=== PATIENT | female | born 1950 | race Caucasian/White ===

== ENCOUNTER 2019-08-07 19:43 | Inpatient (IN) | payer MEDICAID ==
[~2019-08-07] VITALS: Ht 162.6 cm; Wt 82.4 kg
[2019-08-07] MEDS ORDERED: IPRATROPIUM BROMIDE (0.02%) 0.5MG/2.5ML NEB HHN STA (20:15)
[2019-08-07] MEDS: ALBUTEROL (0.083%) 2.5MG/3ML NEB HHN SCH ×3 (20:34→21:47)
[2019-08-07 20:43] LABS: BASOPHILS % 0.5 % (0.0-2.0); HEMATOCRIT. 34.9 % (36.0-48.0); HEMOGLOBIN. 11.1 g/dL (12.0-16.0); LYMPHOCYTES % 29.5 % (20.0-50.0); MEAN CORPUSCULAR VOLUME 81.5 fL (81.0-99.0); MEAN PLATELET VOLUME 6.8 fl (7.4-10.4); MONOCYTES % 9.6 % (2.0-8.0); NEUTROPHILS % 59.4 % (40.0-76.0); PLATELET 315 x1000/uL (130-400); RED BLOOD CELL COUNT 4.28 mill/uL (4.2-5.4); RED CELL DISTRIBUTION WIDTH 17.9 % (11.6-14.6)
[2019-08-07 20:45] LABS: CHLORIDE 105 mEq/L (98-107)
[2019-08-07] MEDS ORDERED: LEVOFLOXACIN 750MG PREMIX 150 ML IV ONE (22:15)
[2019-08-07] MEDS ORDERED: VANCOMYCIN 2,000 MG in DEXT 5% WATER 500 ML IV SCH (23:45)
[2019-08-08] VITALS (8 sets, daily range): BP systolic 118–200; BP diastolic 44–186
[2019-08-08] MEDS ORDERED: NITROGLYCERIN 0.4MG TABLET SL SL PRN (02:00)
[2019-08-08] MEDS ORDERED: ACETAMINOPHEN 325MG TABLET PO PRN (02:00)
[2019-08-08] MEDS ORDERED: VANCOMYCIN 1 G PREMIX 200 ML IV SCH (02:00)
[2019-08-08] MEDS ORDERED: CEFEPIME 1,000 MG in DEXTROSE 5% WATER 50 ML IV SCH (02:00)
[2019-08-08] MEDS ORDERED: IPRATROPIUM/ALBUTEROL 0.5-3(2.5)MG/3ML NEB NEB PRN (02:00)
[2019-08-08] MEDS ORDERED: FUROSEMIDE 40MG/4ML VIAL IVP SCH (02:00)
[2019-08-08] MEDS ORDERED: ZOLPIDEM TARTRATE 5MG TABLET PO PRN (02:00)
[2019-08-08] MEDS ORDERED: ONDANSETRON HCL 4MG/2ML INJ IV PRN (02:00)
[2019-08-08] MEDS ORDERED: MAGNESIUM/ALUMINUM HYDROXIDE/SIMETHICONE 30ML UDC PO PRN (02:00)
[2019-08-08] MEDS ORDERED: GUAIFENESIN/DM 600MG/30MG ER TAB 12HR PO SCH (02:00)
[2019-08-08] MEDS ORDERED: DOCUSATE SODIUM 100MG CAPSULE PO PRN (02:00)
[2019-08-08] MEDS ORDERED: HALOPERIDOL LACTATE 5MG/ML VIAL IM PRN (02:00)
[2019-08-08] MEDS ORDERED: CLONIDINE 0.1MG TABLET PO PRN ×2 (02:00→04:24)
[2019-08-08 03:05] LABS: T4 FREE 0.96 ng/dL (0.76-1.46)
[2019-08-08] MEDS ORDERED: FUROSEMIDE 40MG/4ML VIAL IVP NR (04:25)
[2019-08-08] MEDS ORDERED: CEFEPIME 1,000 MG in DEXTROSE 5% WATER 50 ML IV NR (04:29)
[2019-08-08] MEDS ORDERED: GUAIFENESIN/DM 600MG/30MG ER TAB 12HR PO NR (05:41)
[2019-08-08 08:00] LABS: CREATINE KINASE 74 IU/L (26-192)
[2019-08-08 08:01] LABS: CREATINE KINASE MB FRACTION 1.5 ng/mL (0.5-3.6)
[2019-08-08] MEDS: ASPIRIN 325MG EC TABLET PO SCH (09:00)
[2019-08-08] MEDS: SPIRONOLACTONE 25MG TABLET PO SCH ×2 (09:00→21:47)
[2019-08-08] MEDS: FAMOTIDINE 20MG TABLET PO SCH ×2 (09:00→21:47)
[2019-08-08] MEDS: ENOXAPARIN 30MG/0.3ML SYR SUBCUT SCH ×2 (10:04→21:48)
[2019-08-08] MEDS ORDERED: IPRATROPIUM/ALBUTEROL 0.5-3(2.5)MG/3ML NEB HHN PRN (13:30)
[2019-08-08] MEDS ORDERED: BENZONATATE 100MG CAPSULE PO PRN (13:30)
[2019-08-08] MEDS ORDERED: LORAZEPAM 2MG/ML CPJ IV PRN (13:30)
[2019-08-08] MEDS: ACETYLCYSTEINE 100MG/ML 10% VIAL 4ML INH SCH ×2 (16:07→20:07)
[2019-08-08] MEDS: BUDESONIDE 0.5MG/2ML NEB HHN SCH (16:07)
[2019-08-08] MEDS: IPRATROPIUM/ALBUTEROL 0.5-3(2.5)MG/3ML NEB NEB SCH ×2 (16:07→20:07)
[2019-08-08] MEDS: VANCOMYCIN 1 G PREMIX 200 ML IV SCH (17:16)
[2019-08-08] MEDS: FUROSEMIDE 40MG/4ML VIAL IVP SCH (17:17)
[2019-08-08] MEDS: CEFEPIME 1,000 MG in DEXTROSE 5% WATER 50 ML IV SCH (17:19)
[2019-08-08] MEDS: GUAIFENESIN/DM 600MG/30MG ER TAB 12HR PO SCH (17:20)
[2019-08-08 18:12] LABS: CREATINE KINASE 83 IU/L (26-192)
[2019-08-08 18:13] LABS: CREATINE KINASE MB FRACTION 1.6 ng/mL (0.5-3.6)
[2019-08-09] VITALS (12 sets, daily range): BP systolic 112–181; BP diastolic 52–88
[2019-08-09] MEDS: IPRATROPIUM/ALBUTEROL 0.5-3(2.5)MG/3ML NEB NEB SCH ×6 (00:33→19:59)
[2019-08-09] MEDS: ACETYLCYSTEINE 100MG/ML 10% VIAL 4ML INH SCH ×6 (00:33→19:58)
[2019-08-09] MEDS: BUDESONIDE 0.5MG/2ML NEB HHN SCH ×3 (04:26→19:58)
[2019-08-09] MEDS: GUAIFENESIN/DM 600MG/30MG ER TAB 12HR PO SCH ×2 (05:24→17:23)
[2019-08-09] MEDS: FUROSEMIDE 40MG/4ML VIAL IVP SCH ×2 (05:25→17:23)
[2019-08-09] MEDS: CEFEPIME 1,000 MG in DEXTROSE 5% WATER 50 ML IV SCH ×2 (05:26→17:22)
[2019-08-09] MEDS: GUAIFENESIN 200MG/10ML SUGAR FREE UDC PO PRN ×2 (09:02→13:33)
[2019-08-09] MEDS: FAMOTIDINE 20MG TABLET PO SCH ×2 (09:03→20:37)
[2019-08-09] MEDS: ASPIRIN 325MG EC TABLET PO SCH (09:03)
[2019-08-09] MEDS: SPIRONOLACTONE 25MG TABLET PO SCH ×2 (09:04→20:38)
[2019-08-09] MEDS: ENOXAPARIN 30MG/0.3ML SYR SUBCUT SCH ×2 (09:05→20:38)
[2019-08-09] MEDS: VANCOMYCIN 1 G PREMIX 200 ML IV SCH (13:33)
[2019-08-10] VITALS: BP 160/90
[2019-08-10] MEDS: IPRATROPIUM/ALBUTEROL 0.5-3(2.5)MG/3ML NEB NEB SCH ×4 (00:01→12:51)
[2019-08-10 02:00] VITALS: BP 161/86
[2019-08-10] MEDS: ACETYLCYSTEINE 100MG/ML 10% VIAL 4ML INH SCH ×4 (04:17→12:00)
[2019-08-10] MEDS: GUAIFENESIN/DM 600MG/30MG ER TAB 12HR PO SCH (05:14)
[2019-08-10] MEDS: CEFEPIME 1,000 MG in DEXTROSE 5% WATER 50 ML IV SCH ×2 (05:14→05:18)
[2019-08-10] MEDS: FUROSEMIDE 40MG/4ML VIAL IVP SCH (05:14)
[2019-08-10] MEDS: VANCOMYCIN 1 G PREMIX 200 ML IV SCH (05:18)
[2019-08-10 08:00] VITALS: BP 160/120
[2019-08-10] MEDS: FAMOTIDINE 20MG TABLET PO SCH (08:20)
[2019-08-10] MEDS: ASPIRIN 325MG EC TABLET PO SCH (08:20)
[2019-08-10] MEDS: SPIRONOLACTONE 25MG TABLET PO SCH (08:22)
[2019-08-10] MEDS: BUDESONIDE 0.5MG/2ML NEB HHN SCH (08:46)
[2019-08-10] MEDS ORDERED: ENOXAPARIN 40MG/0.4ML SYR SUBCUT SCH (09:00)
[2019-08-10] MEDS ORDERED: LEVOFLOXACIN 250MG TABLET PO SCH (11:00)
[2019-08-10 12:00] VITALS: BP 152/96
[2019-08-10 15:42] VITALS: BP 163/83
== END 2019-08-10 16:35 | DRG 720 ==
LOC: ER 19:43 → 5EST 23:09 → EDBEDREQSVC 08-08 03:18 → EDBEDREQTM 08-08 03:18 → EDBEDREQDT 08-08 03:18 → ENRESERV 08-08 07:10
PROVIDERS: ADMIT Internal Medicine; ATTEND Internal Medicine
PROC: 5A09357 Assistance with Respiratory Ventilation, Less than 24 Consecutive Hours, Continuous Positive Airway Pressure (ICD-10-PCS; principal; 2019-08-08)
DX: A41.9 Sepsis, unspecified organism (principal); J96.01 Acute respiratory failure with hypoxia; I50.43 Acute on chronic combined systolic (congestive) and diastolic (congestive) heart failure; E44.0 Moderate protein-calorie malnutrition; G92 Toxic encephalopathy; J18.9 Pneumonia, unspecified organism; I11.0 Hypertensive heart disease with heart failure; J44.0 Chronic obstructive pulmonary disease with (acute) lower respiratory infection; J44.1 Chronic obstructive pulmonary disease with (acute) exacerbation; I25.10 Atherosclerotic heart disease of native coronary artery without angina pectoris; E78.5 Hyperlipidemia, unspecified; D64.9 Anemia, unspecified; E03.9 Hypothyroidism, unspecified; E78.00 Pure hypercholesterolemia, unspecified; F20.9 Schizophrenia, unspecified; K21.9 Gastro-esophageal reflux disease without esophagitis; Z79.82 Long term (current) use of aspirin; Z79.899 Other long term (current) drug therapy; Z68.31 Body mass index [BMI] 31.0-31.9, adult
CPT/HCPCS: 36415; 71045; 80061; 82550; 82553; 83036; 83880; 84439; 84443; 84484; 87804; 92610; 93005; 93306; 93970; 94640; 94660; 96365; 96367; 96375; 97161; 99285; A6261; J0692; J1650; J1940; J1956; J3370; J7060; J7608; J7611; J7620; J7626